=== PATIENT | female | born 1975 | race American Indian/Alaskan Native ===

== ENCOUNTER 2018-12-24 12:08 | Emergency (ER) | payer OTHER ==
[2018-12-24] MEDS ORDERED: IBUPROFEN PO ONE (12:22)
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
[2018-12-24 20:54] VITALS: BP 138/89
== END 2018-12-24 14:08 | disposition home or self-care (01) ==
LOC: ED 12:08
DX: M54.5 Low back pain (principal); M25.571 Pain in right ankle and joints of right foot; V43.92XA Unspecified car occupant injured in collision with other type car in traffic accident, initial encounter; Y93.89 Activity, other specified; Y92.488 Other paved roadways as the place of occurrence of the external cause; Y99.8 Other external cause status
CPT/HCPCS: 72080; 99283